=== PATIENT | female | born 1930 | race Caucasian/White ===

== ENCOUNTER 2017-07-21 14:04 | Emergency (ER) | payer MEDICARE ==
[~2017-07-21] VITALS: Ht 157.5 cm; Wt 55.0 kg
[2017-07-21] MEDS ORDERED: SODIUM CHLORIDE 0.9% 1,000 ML IV ONE (14:38)
[2017-07-21] MEDS ORDERED: ACETAMINOPHEN 325 MG TABLET PO ONE (15:00)
[2017-07-21 15:50] LABS: HEMATOCRIT 43.5 % (34.6-47.8); HEMOGLOBIN 14.4 g/dL (11.7-16.4); WHITE BLOOD COUNT 6.4 x10^3/uL (3.4-10)
[2017-07-21 16:03] LABS: BLOOD UREA NITROGEN 29 mg/dL (7-18)
[2017-07-21 16:07] LABS: ASPARTATE AMINO TRANSFERASE 18 U/L (15-37)
[2017-07-21] MEDS ORDERED: ACETAMINOPHEN 325 MG TABLET ONE (17:25)
[2017-07-21] MEDS ORDERED: LORazepam 2 MG/ML, 1ML IVPush STA (17:39)
[2017-07-21] MEDS ORDERED: HALOPERIDOL 5 MG/ML ONE (17:47)
[2017-07-21] MEDS ORDERED: HALOPERIDOL 5 MG/ML IM ONE (18:00)
[2017-07-21 21:14] VITALS: BP 105/79
== END 2017-07-21 21:39 | disposition home or self-care (01) ==
LOC: ED 21:35
DX: G31.83 Neurocognitive disorder with Lewy bodies (principal); F02.80 Dementia in other diseases classified elsewhere, unspecified severity, without behavioral disturbance, psychotic disturbance, mood disturbance, and anxiety; E86.0 Dehydration; R41.0 Disorientation, unspecified; Z86.73 Personal history of transient ischemic attack (TIA), and cerebral infarction without residual deficits
CPT/HCPCS: 36415; 71010; 80053; 81001; 83605; 83690; 84145; 85025; 87040; 93005; 96360; 96372; 99285; J1630; J7030